=== PATIENT | male | born 2005 | race Two or more races ===

== ENCOUNTER 2024-04-06 18:57 | Emergency (ER) | payer OTHER ==
[~2024-04-06] VITALS: Ht 177.8 cm; Wt 63.5 kg
[2024-04-06 19:24] LABS: HEMATOCRIT 39.1 % (39.0-48.0); HEMOGLOBIN 13.2 g/dL (13-16.00); MEAN CORPUSCULAR HEMOGLOBIN 30.5 pg (27.00-32.0); MEAN CORPUSCULAR HGB CONC 33.8 g/dl (32.0-36.0); PLATELET COUNT 176 K/uL (150-450); RED BLOOD COUNT 4.34 M/uL (4.00-6.00); RED CELL DISTRIBUTION WIDTH 13.3 % (11.5-14.5)
[2024-04-06 19:44] LABS: ALBUMIN 4.4 gm/dL (3.4-5.0); BILIRUBIN TOTAL 3.03 mg/dL (0.3-1.2); CALCIUM 9.3 mg/dL (8.5-10.1); CREATININE SERUM 0.94 mg/dL (0.70-1.30); GFR 101.31; GLOBULINA 2.8 G/DL (2.4-3.5); POTASSIUM 3.3 mEq/L (3.5-5.1); TOTAL PROTEIN 7.2 gm/dL (6.4-8.2)
[2024-04-06 19:46] LABS: COCAINE NEGATIVE (NEGATIVE); METHADONE NEGATIVE (NEGATIVE); OPIATES NEGATIVE (NEGATIVE); THC ( Cannabinoids) NEGATIVE (NEGATIVE)
[2024-04-06 20:12] LABS: ALBUMIN 4.3 gm/dL (3.4-5.0); BILIRUBIN TOTAL 2.95 mg/dL (0.3-1.2); BILIRUBIN,CONJUGATED 0.26 mg/dL (0.0-0.2); BILIRUBIN,UNCONJUGATED 2.69 mg/dL (0.0-0.6); TOTAL PROTEIN 7.3 gm/dL (6.4-8.2)
== END 2024-04-06 21:53 | disposition home or self-care (01) ==
LOC: ER 18:57
PROVIDERS: General Practice
DX: F41.0 Panic disorder [episodic paroxysmal anxiety] (principal); R06.02 Shortness of breath; N28.1 Cyst of kidney, acquired